=== PATIENT | male | born 1970 | race Caucasian/White ===

== ENCOUNTER 2019-08-25 21:52 | Inpatient (IN) | payer OTHER ==
[2019-08-25 22:59] VITALS: BMI 29.8
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
[2019-08-25] MEDS ORDERED: MAGNESIUM CITRATE 300 ML BOTTLE PO PRN (23:52)
[2019-08-25] MEDS ORDERED: hydrOXYzine PAMOATE 25 MG CAPSULE (FP) PO PRN (23:52)
[2019-08-25] MEDS ORDERED: METHOCARBAMOL 500 MG TABLET PO PRN (23:52)
[2019-08-25] MEDS ORDERED: ACETAMINOPHEN 325 MG TABLET (FP) PO PRN (23:52)
[2019-08-25] MEDS ORDERED: MAGNESIUM HYDROX 2400MG/30ML ORAL SUSPENSION 30 ML CUP PO PRN (23:52)
[2019-08-25] MEDS ORDERED: MAG HYDROX/AL HYDROX/SIMETH 30 ML UNIT-DOSE CUP PO PRN (23:52)
[2019-08-25] MEDS ORDERED: MENTHOL/PHENOL 1 EACH UD MM PRN (23:52)
[2019-08-25] MEDS ORDERED: IBUPROFEN 400 MG TABLET (FP) PO PRN (23:52)
[2019-08-25] MEDS ORDERED: BISMUTH SUBSALICYLATE 524 MG/30 ML UD PO PRN (23:52)
[2019-08-26] MEDS ORDERED: chlordiazePOXIDE HCL 25 MG CAPSULE PO PRN (00:17)
[2019-08-26] MEDS: chlordiazePOXIDE HCL 25 MG CAPSULE PO SCH ×4 (05:58→22:08)
--- NOTE | 2019-08-26 09:34 | PN ---
[facility] CIWA - CIWA Score Nausea/Vomitin-Mild Nausea/No Vomiting Muscle Tremors: 3 Anxiety: 2 Agitation: 1-Slight > Activity Paroxysmal Sweats: 2 Orientation: 2-Disoriented Date<2 days (date of week day of month) Tacttile Disturbances: 0-None Auditory Disturbances: 0-None Visual Disturbances: 1-Very Mild Sensitivity Headache: 2-Mild CIWA-Ar Total Score: 14 [facility] Progress Note (SOAP) Subjective: 49 years old male admitted on 08/25/19 for alcohol withdrawal sx management treating with librium detox regimen feeling tired resting in bed limited conversation with staff prefers to stay in bed today Objective: 08/26/19 09:33 Vital Signs Temperature 97.3 F L 08/26/19 09:07 Pulse Rate 86 08/26/19 09:07 Respiratory Rate 16 08/26/19 09:07 Blood Pressure 127/86 08/26/19 09:07 O2 Sat by Pulse Oximetry (%) 08/26/19 09:33 lab pending Assessment: 08/26/19 09:33 alcohol withdrawal Plan: librium regimen
[2019-08-26] MEDS: PRENATAL VITAMINS W/ FOLIC ACID TABLET (FP) PO SCH (10:40)
[2019-08-26 10:45] LABS: HEMATOCRIT 41.6 % (35.4-49); HEMOGLOBIN 13.9 GM/dL (11.7-16.9); MCH 32.1 pg (25.7-33.7); MCHC 33.3 g/dl (32.0-35.9); MEAN CELL VOLUME 96.3 fl (80-96); MEAN PLT VOLUME 9.8 fl (7.5-11.1); PLATELET COUNT 236 K/MM3 (134-434); RBC 4.32 M/mm3 (4.00-5.60); RDW 13.7 % (11.9-15.9); WHITE BLOOD COUNT 8.5 K/mm3 (4.0-10.0)
[2019-08-26 10:47] LABS: ALBUMIN 4.1 g/dl (3.4-5.0); BILIRUBIN,TOTAL 1.1 mg/dL (0.2-1); BLOOD UREA NITROGEN 18.7 mg/dL (7-18); CALCIUM 9.2 mg/dL (8.5-10.1); POTASSIUM 3.9 mmol/L (3.5-5.1); TOT PROT 7.4 g/dl (6.4-8.2)
[2019-08-26] MEDS: MINERAL OIL/PETROLAT/WATER TOPICAL CREAM 113 GM JAR TP SCH ×2 (15:52→23:22)
[2019-08-26] MEDS: THIAMINE HCL 100 MG TABLET (FP) PO SCH (22:06)
[2019-08-26] MEDS: MELATONIN 5 MG TABLETS PO PRN (22:06)
[2019-08-27] MEDS: chlordiazePOXIDE HCL 25 MG CAPSULE PO SCH ×4 (05:41→22:11)
[2019-08-27] MEDS: PRENATAL VITAMINS W/ FOLIC ACID TABLET (FP) PO SCH (10:09)
[2019-08-27] MEDS: MINERAL OIL/PETROLAT/WATER TOPICAL CREAM 113 GM JAR TP SCH (10:10)
--- NOTE | 2019-08-27 11:56 | PN ---
[facility] CIWA - CIWA Score Nausea/Vomitin-Mild Nausea/No Vomiting Muscle Tremors: 2 Anxiety: 2 Agitation: 2 Paroxysmal Sweats: 1-Minimal Palms Moist Orientation: 0-Oriented Tacttile Disturbances: 0-None Auditory Disturbances: 0-None Visual Disturbances: 1-Very Mild Sensitivity Headache: 0-None Present CIWA-Ar Total Score: 9 S Progress Note (SOAP) Subjective: 49 years old male admitted on 08/25/19 for alcohol withdrawal sx management treating with librium detox regimen feeling ok today resting in bed encourage to attend behavior and psychosocial therapies while in detox Objective: 08/27/19 11:55 Vital Signs Temperature 96.3 F L 08/27/19 09:12 Pulse Rate 79 08/27/19 09:12 Respiratory Rate 18 08/27/19 09:12 Blood Pressure 126/88 08/27/19 09:12 O2 Sat by Pulse Oximetry (%) Laboratory Last Values WBC 8.5 K/mm3 (4.0-10.0) 08/26/19 07:20 RBC 4.32 M/mm3 (4.00-5.60) 08/26/19 07:20 Hgb 13.9 GM/dL (11.7-16.9) 08/26/19 07:20 Hct 41.6 % (35.4-49) 08/26/19 07:20 MCV 96.3 fl (80-96) H 08/26/19 07:20 MCH 32.1 pg (25.7-33.7) 08/26/19 07:20 MCHC 33.3 g/dl (32.0-35.9) 08/26/19 07:20 RDW 13.7 % (11.9-15.9) 08/26/19 07:20 Plt Count 236 K/MM3 (134-434) 08/26/19 07:20 MPV 9.8 fl (7.5-11.1) 08/26/19 07:20 Sodium 141 mmol/L (136-145) 08/26/19 07:20 Potassium 3.9 mmol/L (3.5-5.1) 08/26/19 07:20 Chloride 105 mmol/L (98-107) 08/26/19 07:20 Carbon Dioxide 30 mmol/L (21-32) 08/26/19 07:20 Anion Gap 7 MMOL/L (8-16) L 08/26/19 07:20 BUN 18.7 mg/dL (7-18) H 08/26/19 07:20 Creatinine 1.0 mg/dL (0.55-1.3) 08/26/19 07:20 Est GFR (CKD-EPI)AfAm 101.98 08/26/19 07:20 Est GFR (CKD-EPI)NonAf 87.99 08/26/19 07:20 Random Glucose 81 mg/dL (74-106) 08/26/19 07:20 Calcium 9.2 mg/dL (8.5-10.1) 08/26/19 07:20 Total Bilirubin 1.1 mg/dL (0.2-1) H 08/26/19 07:20 AST 23 U/L (15-37) 08/26/19 07:20 ALT 27 U/L (13-61) 08/26/19 07:20 Alkaline Phosphatase 53 U/L (45-117) 08/26/19 07:20 Total Protein 7.4 g/dl (6.4-8.2) 08/26/19 07:20 Albumin 4.1 g/dl (3.4-5.0) 08/26/19 07:20 RPR Titer Nonreactive (NONREACTIVE) 08/26/19 07:20 lab noted Assessment: 08/27/19 11:55 alcohol withdrawal Plan: librium regimen
[2019-08-27] MEDS: HYDROCORTISONE 1% TOPICAL OINT 30 GM TUBE TP SCH ×3 (15:02→22:10)
[2019-08-27] MEDS: MELATONIN 5 MG TABLETS PO PRN (22:11)
[2019-08-27] MEDS: THIAMINE HCL 100 MG TABLET (FP) PO SCH (22:11)
[2019-08-28] MEDS ORDERED: chlordiazePOXIDE HCL 10 MG CAPSULE PO PRN
[2019-08-28] MEDS: chlordiazePOXIDE HCL 10 MG CAPSULE PO SCH ×4 (05:36→22:14)
[2019-08-28] MEDS: PRENATAL VITAMINS W/ FOLIC ACID TABLET (FP) PO SCH (10:21)
[2019-08-28] MEDS: HYDROCORTISONE 1% TOPICAL OINT 30 GM TUBE TP SCH ×4 (10:21→22:14)
[2019-08-28] MEDS: ACETAMINOPHEN 325 MG TABLET (FP) PO PRN (10:22)
--- NOTE | 2019-08-28 10:22 | PN ---
[facility] CIWA - CIWA Score Nausea/Vomitin-No Nausea/No Vomiting Muscle Tremors: 2 Anxiety: 1-Mildly Anxious Agitation: 1-Slight > Activity Paroxysmal Sweats: 2 Orientation: 0-Oriented Tacttile Disturbances: 0-None Auditory Disturbances: 0-None Visual Disturbances: 1-Very Mild Sensitivity Headache: 0-None Present CIWA-Ar Total Score: 7 S Progress Note (SOAP) Subjective: 49 years old male admitted on 08/25/19 for alcohol withdrawal sx management treating with librium detox regimen reports feeling depressed denies suicidal ideation denies homocidal ideation no self destructive behavior requests to be seen by a psychiatrist denies hallucinations but eyes are sensitive to light ate breakfast tolerated food and fluid well Objective: 08/28/19 10:20 Vital Signs Temperature 97.4 F L 08/28/19 09:19 Pulse Rate 95 H 08/28/19 09:19 Respiratory Rate 18 08/28/19 09:19 Blood Pressure 126/80 08/28/19 09:19 O2 Sat by Pulse Oximetry (%) Laboratory Last Values WBC 8.5 K/mm3 (4.0-10.0) 08/26/19 07:20 RBC 4.32 M/mm3 (4.00-5.60) 08/26/19 07:20 Hgb 13.9 GM/dL (11.7-16.9) 08/26/19 07:20 Hct 41.6 % (35.4-49) 08/26/19 07:20 MCV 96.3 fl (80-96) H 08/26/19 07:20 MCH 32.1 pg (25.7-33.7) 08/26/19 07:20 MCHC 33.3 g/dl (32.0-35.9) 08/26/19 07:20 RDW 13.7 % (11.9-15.9) 08/26/19 07:20 Plt Count 236 K/MM3 (134-434) 08/26/19 07:20 MPV 9.8 fl (7.5-11.1) 08/26/19 07:20 Sodium 141 mmol/L (136-145) 08/26/19 07:20 Potassium 3.9 mmol/L (3.5-5.1) 08/26/19 07:20 Chloride 105 mmol/L (98-107) 08/26/19 07:20 Carbon Dioxide 30 mmol/L (21-32) 08/26/19 07:20 Anion Gap 7 MMOL/L (8-16) L 08/26/19 07:20 BUN 18.7 mg/dL (7-18) H 08/26/19 07:20 Creatinine 1.0 mg/dL (0.55-1.3) 08/26/19 07:20 Est GFR (CKD-EPI)AfAm 101.98 08/26/19 07:20 Est GFR (CKD-EPI)NonAf 87.99 08/26/19 07:20 Random Glucose 81 mg/dL (74-106) 08/26/19 07:20 Calcium 9.2 mg/dL (8.5-10.1) 08/26/19 07:20 Total Bilirubin 1.1 mg/dL (0.2-1) H 08/26/19 07:20 AST 23 U/L (15-37) 08/26/19 07:20 ALT 27 U/L (13-61) 08/26/19 07:20 Alkaline Phosphatase 53 U/L (45-117) 08/26/19 07:20 Total Protein 7.4 g/dl (6.4-8.2) 08/26/19 07:20 Albumin 4.1 g/dl (3.4-5.0) 08/26/19 07:20 RPR Titer Nonreactive (NONREACTIVE) 08/26/19 07:20 lab noted Assessment: 08/28/19 10:21 alcohol withdrawal Plan: librium regiment
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
[2019-08-28] MEDS: THIAMINE HCL 100 MG TABLET (FP) PO SCH (22:14)
[2019-08-28] MEDS: MELATONIN 5 MG TABLETS PO PRN (22:14)
[2019-08-29] MEDS: chlordiazePOXIDE HCL 10 MG CAPSULE PO SCH ×2 (05:20→17:38)
[2019-08-29] MEDS: PRENATAL VITAMINS W/ FOLIC ACID TABLET (FP) PO SCH (10:01)
[2019-08-29] MEDS: ACETAMINOPHEN 325 MG TABLET (FP) PO PRN (10:01)
[2019-08-29] MEDS: HYDROCORTISONE 1% TOPICAL OINT 30 GM TUBE TP SCH ×4 (10:01→22:21)
--- NOTE | 2019-08-29 10:25 | PN ---
[facility] CIWA - CIWA Score Nausea/Vomitin-No Nausea/No Vomiting Muscle Tremors: 1-None Visible, but [place] Anxiety: 3 Agitation: 0-Normal Activity Paroxysmal Sweats: 1-Minimal Palms Moist Orientation: 0-Oriented Tacttile Disturbances: 0-None Auditory Disturbances: 0-None Visual Disturbances: 0-None Headache: 0-None Present CIWA-Ar Total Score: 5 S Progress Note (SOAP) Subjective: 49 years old male admitted on 08/25/19 for alcohol withdrawal sx management treating with librium detox regimen feeling better today less tremor mild anxiousness discussed relapse prevention with staff Objective: 08/29/19 10:26 Vital Signs Temperature 97.5 F L 08/29/19 09:10 Pulse Rate 81 08/29/19 09:10 Respiratory Rate 18 08/29/19 09:10 Blood Pressure 117/81 08/29/19 09:10 O2 Sat by Pulse Oximetry (%) Laboratory Last Values WBC 8.5 K/mm3 (4.0-10.0) 08/26/19 07:20 RBC 4.32 M/mm3 (4.00-5.60) 08/26/19 07:20 Hgb 13.9 GM/dL (11.7-16.9) 08/26/19 07:20 Hct 41.6 % (35.4-49) 08/26/19 07:20 MCV 96.3 fl (80-96) H 08/26/19 07:20 MCH 32.1 pg (25.7-33.7) 08/26/19 07:20 MCHC 33.3 g/dl (32.0-35.9) 08/26/19 07:20 RDW 13.7 % (11.9-15.9) 08/26/19 07:20 Plt Count 236 K/MM3 (134-434) 08/26/19 07:20 MPV 9.8 fl (7.5-11.1) 08/26/19 07:20 Sodium 141 mmol/L (136-145) 08/26/19 07:20 Potassium 3.9 mmol/L (3.5-5.1) 08/26/19 07:20 Chloride 105 mmol/L (98-107) 08/26/19 07:20 Carbon Dioxide 30 mmol/L (21-32) 08/26/19 07:20 Anion Gap 7 MMOL/L (8-16) L 08/26/19 07:20 BUN 18.7 mg/dL (7-18) H 08/26/19 07:20 Creatinine 1.0 mg/dL (0.55-1.3) 08/26/19 07:20 Est GFR (CKD-EPI)AfAm 101.98 08/26/19 07:20 Est GFR (CKD-EPI)NonAf 87.99 08/26/19 07:20 Random Glucose 81 mg/dL (74-106) 08/26/19 07:20 Calcium 9.2 mg/dL (8.5-10.1) 08/26/19 07:20 Total Bilirubin 1.1 mg/dL (0.2-1) H 08/26/19 07:20 AST 23 U/L (15-37) 08/26/19 07:20 ALT 27 U/L (13-61) 08/26/19 07:20 Alkaline Phosphatase 53 U/L (45-117) 08/26/19 07:20 Total Protein 7.4 g/dl (6.4-8.2) 08/26/19 07:20 Albumin 4.1 g/dl (3.4-5.0) 08/26/19 07:20 RPR Titer Nonreactive (NONREACTIVE) 08/26/19 07:20 lab noted Assessment: 08/29/19 10:26 alcohol withdrawal Plan: librium regimen
[2019-08-29] MEDS: MELATONIN 5 MG TABLETS PO PRN (22:21)
[2019-08-29] MEDS: THIAMINE HCL 100 MG TABLET (FP) PO SCH (22:21)
[2019-08-30] MEDS ORDERED: chlordiazePOXIDE HCL 10 MG CAPSULE PO ONE (05:00)
[2019-08-30 09:15] VITALS: BP 131/90; PULSE 96; TEMP 97.5
[2019-08-30] MEDS: HYDROCORTISONE 1% TOPICAL OINT 30 GM TUBE TP SCH ×2 (09:35→13:24)
[2019-08-30] MEDS: ACETAMINOPHEN 325 MG TABLET (FP) PO PRN (09:35)
[2019-08-30] MEDS: PRENATAL VITAMINS W/ FOLIC ACID TABLET (FP) PO SCH (09:35)
--- NOTE | 2019-08-30 10:31 | PN ---
[facility] CIWA - CIWA Score Nausea/Vomitin-No Nausea/No Vomiting Muscle Tremors: 1-None Visible, but [place] Anxiety: 1-Mildly Anxious Agitation: 0-Normal Activity Paroxysmal Sweats: 1-Minimal Palms Moist Orientation: 0-Oriented Tacttile Disturbances: 0-None Auditory Disturbances: 0-None Visual Disturbances: 0-None Headache: 0-None Present CIWA-Ar Total Score: 3 [facility] Progress Note (SOAP) Subjective: 49 years old male admitted on 08/25/19 for alcohol withdrawal sx management treating with librium detox regiment reports seen by psychiatrist feeling better received melantonin yesterday and librium today requests to be seen by a psychiatrist today denies suicidal ideation no self harm behavior noted at this time psychiatrist referral encourage seeking psychotherapy in [facility] Objective: 08/30/19 10:35 Vital Signs Temperature 97.5 F L 08/30/19 09:15 Pulse Rate 96 H 08/30/19 09:15 Respiratory Rate 18 08/30/19 09:15 Blood Pressure 131/90 08/30/19 09:15 O2 Sat by Pulse Oximetry (%) Laboratory Last Values WBC 8.5 K/mm3 (4.0-10.0) 08/26/19 07:20 RBC 4.32 M/mm3 (4.00-5.60) 08/26/19 07:20 Hgb 13.9 GM/dL (11.7-16.9) 08/26/19 07:20 Hct 41.6 % (35.4-49) 08/26/19 07:20 MCV 96.3 fl (80-96) H 08/26/19 07:20 MCH 32.1 pg (25.7-33.7) 08/26/19 07:20 MCHC 33.3 g/dl (32.0-35.9) 08/26/19 07:20 RDW 13.7 % (11.9-15.9) 08/26/19 07:20 Plt Count 236 K/MM3 (134-434) 08/26/19 07:20 MPV 9.8 fl (7.5-11.1) 08/26/19 07:20 Sodium 141 mmol/L (136-145) 08/26/19 07:20 Potassium 3.9 mmol/L (3.5-5.1) 08/26/19 07:20 Chloride 105 mmol/L (98-107) 08/26/19 07:20 Carbon Dioxide 30 mmol/L (21-32) 08/26/19 07:20 Anion Gap 7 MMOL/L (8-16) L 08/26/19 07:20 BUN 18.7 mg/dL (7-18) H 08/26/19 07:20 Creatinine 1.0 mg/dL (0.55-1.3) 08/26/19 07:20 Est GFR (CKD-EPI)AfAm 101.98 08/26/19 07:20 Est GFR (CKD-EPI)NonAf 87.99 08/26/19 07:20 Random Glucose 81 mg/dL (74-106) 08/26/19 07:20 Calcium 9.2 mg/dL (8.5-10.1) 08/26/19 07:20 Total Bilirubin 1.1 mg/dL (0.2-1) H 08/26/19 07:20 AST 23 U/L (15-37) 08/26/19 07:20 ALT 27 U/L (13-61) 08/26/19 07:20 Alkaline Phosphatase 53 U/L (45-117) 08/26/19 07:20 Total Protein 7.4 g/dl (6.4-8.2) 08/26/19 07:20 Albumin 4.1 g/dl (3.4-5.0) 08/26/19 07:20 RPR Titer Nonreactive (NONREACTIVE) 08/26/19 07:20 lab noted emotional support given patient appears anxious about relapse during recovery that "can not live like that" 08/30/19 10:38 encourage the patient to attend behavior and psychosocial therapies groups and meetings while in detox Assessment: 08/30/19 10:39 alcohol withdrawal Plan: librium regimen multidisciplinary approaches to patient centered care that it is necessary for patient to be seen by a psychiatrist today
--- NOTE | 2019-08-30 11:22 | DS ---
[facility] Detox Discharge Summary Admission Date: 08/25/19 Discharge Date: 08/30/19 - History Present History: Alcohol Dependence Additional Comments: an opportunity for patient to be seen by a psychiatrist in [place] patient agrees to be admitted to [facility] and be seen by psychiatrist for sad mood and learn relapse coping patient is planed to complete short term in patient rehab as first step to recovery 49 years old male admitted on 08/25/19 for alcohol withdrawal sx management treated with librium detox regiment patient has completed the librium regimen and tolerated well alert oriented x 3 respiratory clear lung bilaterally on auscultation extremities full range of motion skin warm and dry - Physical Exam Results Vital Signs: Vital Signs Temperature 97.5 F L 08/30/19 09:15 Pulse Rate 96 H 08/30/19 09:15 Respiratory Rate 18 08/30/19 09:15 Blood Pressure 131/90 08/30/19 09:15 O2 Sat by Pulse Oximetry (%) Pertinent Admission Physical Exam Findings: alcohol withdrawal Laboratory Last Values WBC 8.5 K/mm3 (4.0-10.0) 08/26/19 07:20 RBC 4.32 M/mm3 (4.00-5.60) 08/26/19 07:20 Hgb 13.9 GM/dL (11.7-16.9) 08/26/19 07:20 Hct 41.6 % (35.4-49) 08/26/19 07:20 MCV 96.3 fl (80-96) H 08/26/19 07:20 MCH 32.1 pg (25.7-33.7) 08/26/19 07:20 MCHC 33.3 g/dl (32.0-35.9) 08/26/19 07:20 RDW 13.7 % (11.9-15.9) 08/26/19 07:20 Plt Count 236 K/MM3 (134-434) 08/26/19 07:20 MPV 9.8 fl (7.5-11.1) 08/26/19 07:20 Sodium 141 mmol/L (136-145) 08/26/19 07:20 Potassium 3.9 mmol/L (3.5-5.1) 08/26/19 07:20 Chloride 105 mmol/L (98-107) 08/26/19 07:20 Carbon Dioxide 30 mmol/L (21-32) 08/26/19 07:20 Anion Gap 7 MMOL/L (8-16) L 08/26/19 07:20 BUN 18.7 mg/dL (7-18) H 08/26/19 07:20 Creatinine 1.0 mg/dL (0.55-1.3) 08/26/19 07:20 Est GFR (CKD-EPI)AfAm 101.98 08/26/19 07:20 Est GFR (CKD-EPI)NonAf 87.99 08/26/19 07:20 Random Glucose 81 mg/dL (74-106) 08/26/19 07:20 Calcium 9.2 mg/dL (8.5-10.1) 08/26/19 07:20 Total Bilirubin 1.1 mg/dL (0.2-1) H 08/26/19 07:20 AST 23 U/L (15-37) 08/26/19 07:20 ALT 27 U/L (13-61) 08/26/19 07:20 Alkaline Phosphatase 53 U/L (45-117) 08/26/19 07:20 Total Protein 7.4 g/dl (6.4-8.2) 08/26/19 07:20 Albumin 4.1 g/dl (3.4-5.0) 08/26/19 07:20 RPR Titer Nonreactive (NONREACTIVE) 08/26/19 07:20 lab noted - Treatment Hospital Course: Detox Protocol Followed, Detoxed Safely, Responded well, Discharged Condition Good, Rehab Referral Accepted Patient has Accepted a Rehab Referral to: [facility] - Medication Discharge Medications: Ambulatory Orders NK [No Known Home Medication] 08/30/19 - Diagnosis (1) Alcohol dependence with withdrawal, uncomplicated Status: Acute (2) Substance induced mood disorder Status: Suspected (3) Depression Status: Suspected Qualifiers: Depression Type: dysthymia Qualified Code(s): F34.1 - Dysthymic disorder - AMA Did Patient Leave Against Medical Advice: No CIWA Score - CIWA Score Nausea/Vomitin-No Nausea/No Vomiting Muscle Tremors: 1-None Visible, but [place] Anxiety: 0-No Anxiety, at Ease Agitation: 0-Normal Activity Paroxysmal Sweats: No Perspiration Orientation: 0-Oriented Tacttile Disturbances: 0-None Auditory Disturbances: 0-None Visual Disturbances: 0-None Headache: 0-None Present CIWA-Ar Total Score: 1
--- NOTE | 2019-08-30 15:14 | EKG ---
Test Reason : Blood Pressure : / mmHG Vent. Rate : 076 BPM Atrial Rate : 076 BPM P-R Int : 182 ms QRS Dur : 094 ms QT Int : 368 ms P-R-T Axes : 057 018 030 degrees QTc Int : 414 ms NORMAL SINUS RHYTHM POSSIBLE LEFT ATRIAL ENLARGEMENT EARLY REPOLARIZATION BORDERLINE ECG NO PREVIOUS ECGS AVAILABLE Confirmed by CAROLYN HERNANDEZ, IVY ([id number]) on 08/30/2019 3:14:38 PM Referred By: Confirmed By:IVY LEON MD
== END 2019-08-30 13:23 | disposition other institution (70) | DRG 774 ==
LOC: YASAS 21:52 → UNDOADMIN 23:30 → Y3N 23:30
PROVIDERS: ADMIT Allergy & Immunology; ATTEND Allergy & Immunology
PROC: HZ2ZZZZ Detoxification Services for Substance Abuse Treatment (ICD-10-PCS; principal; 2019-08-25)
DX: F10.230 Alcohol dependence with withdrawal, uncomplicated (principal); F14.20 Cocaine dependence, uncomplicated; F19.282 Other psychoactive substance dependence with psychoactive substance-induced sleep disorder; F19.24 Other psychoactive substance dependence with psychoactive substance-induced mood disorder; F34.1 Dysthymic disorder
CPT/HCPCS: 36415; 80053; 85027; 86593; 93005; 93010

== ENCOUNTER 2019-08-30 13:26 | Inpatient (IN) | payer OTHER ==
[2019-08-30] MEDS ORDERED: guaiFENesin 200 MG/10 ML 10 ML UNIT-DOSE CUPS PO PRN (13:36)
[2019-08-30] MEDS ORDERED: MENTHOL/PHENOL 1 EACH UD MM PRN (13:36)
[2019-08-30] MEDS ORDERED: MAG HYDROX/AL HYDROX/SIMETH 30 ML UNIT-DOSE CUP PO PRN (13:36)
[2019-08-30] MEDS ORDERED: ACETAMINOPHEN 325 MG TABLET (FP) PO PRN (13:36)
[2019-08-30] MEDS ORDERED: MAGNESIUM HYDROX 2400MG/30ML ORAL SUSPENSION 30 ML CUP PO PRN (13:36)
[2019-08-30] MEDS ORDERED: LOPERAMIDE HCL 2 MG CAPSULE PO PRN (13:36)
[2019-08-30] MEDS ORDERED: IBUPROFEN 400 MG TABLET (FP) PO PRN (13:36)
[2019-08-30] MEDS ORDERED: MAGNESIUM CITRATE 300 ML BOTTLE PO PRN (13:36)
[2019-08-30] MEDS ORDERED: P-EPHED 60MG/TRIPROLIDI 2.5MG TABLET PO PRN (13:36)
--- NOTE | 2019-08-30 13:36 | HP ---
AB HERNANDEZ Rehab Assess/Revision - Admission History Admitted to Rehab from: [facility] [place] Date of Admission to Rehab: 08/30/19 - Findings Detox History & Physical reviewed: Yes Concur with findings: Yes Comments/Additional Findings: transferred from detox to rehab admission as per protocol Inpatient Rehab Admission - Rehab Decision to Admit Inpatient rehab admission?: Yes - Initial Determination Are CD services needed?: Yes Free of communicable disease: Yes Not in need of hospitalization: Yes - Rehab Admission Criteria Previous failed treatment: Yes Poor recovery environment: Yes Comorbidities: Yes Lacks judgement: Yes Patient is meeting Inpatient Rehab admission criteria:: Yes
--- NOTE | 2019-08-30 15:58 | CONSULT ---
[facility] Psychiatric Consult - Data Date of interview: 08/30/19 Admission source: [facility] Identifying data: Patient is a 49 year old male, father of three, , unemployed, homeless, and is supported by food stamps. This is patient's first admission to rehab at [facility]. Patient admitted to for alcohol and cocaine dependence. Substance Abuse History: Smoking Cessation. Smoking history: Never smoked. Have you smoked in the past 12 months: No. Hx Chewing Tobacco Use: No. Initiated information on smoking cessation: No. - Substance & Tx. History. Hx Alcohol Use: Yes. Hx Substance Use: No. Substance Use Type: Alcohol. Hx Substance Use Treatment: Yes ([facility]). - Substances abused. Alcohol. Substance route: Oral. Frequency: Daily. Amount used: liquor- 1 pint, 2 six pack. Age of first use: 47. Date of last use: 08/25/19. Cocaine. Substance route: Inhalation. Frequency: Daily. Amount used: 3 bags. Age of first use: 30. Date of last use: 08/22/19 Medical History: unremarkable. Psychiatric History: Patient denies history of psychiatric hospitalization and suicide attempt. Mr. Garcia first saw a psychiatrist in [facility] in the [place] in 2017 after he was having difficulty with the of his whom committed suicide by hanging in 2014. Mr Garcia reports seeing the psychiatrist for 2-3 months before discontining medication. States that he was prescribed an antidepressant medication but is unable to recall the name of the medication. He reports difficulty with compliance with treatment because during that time [facility] removed the children from his household due to his drug addiction. Patient is now requesting to restart treatment with an antidepressant as he reports feeling sad, depresssed, and at times feels hopeless. Patient denies thoughts or urges to hurt self others. Physical/Sexual Abuse/Trauma History: denies. Mental Status Exam - Mental Status Exam Alert and Oriented to: Time, Place, Person Cognitive Function: Good Patient Appearance: Well Groomed Mood: Sad Affect: Appropriate Patient Behavior: Appropriate, Cooperative Speech Pattern: Appropriate Voice Loudness: Normal Thought Process: Intact, Goal Oriented Thought Disorder: Not Present Hallucinations: Denies Suicidal Ideation: Denies Homicidal Ideation: Denies Insight/Judgement: Poor Sleep: Poorly Appetite: Fair Muscle strength/Tone: Normal Gait/Station: Normal Psychiatric Findings - Problem List ([place] 1, 2,3) (1) Alcohol use disorder Current Visit: Yes Status: Acute (2) Cocaine dependence Current Visit: Yes Status: Acute (3) Substance induced mood disorder Current Visit: Yes Status: Suspected (4) Depressive disorder Current Visit: Yes Status: Acute - Initial Treatment Plan Initial Treatment Plan: Psychoeducation provided. Detoxification in progress. Will order Prozac 10mg daily. Benefits and side effects discussed.
[2019-08-30] MEDS: HYDROCORTISONE 1% TOPICAL OINT 30 GM TUBE TP SCH ×3 (16:14→21:42)
[2019-08-30] MEDS: MELATONIN 5 MG TABLETS PO PRN (21:42)
[2019-08-30] MEDS: THIAMINE HCL 100 MG TABLET (FP) PO SCH (21:42)
--- NOTE | 2019-08-31 10:30 | PN ---
[facility] Progress Note Note: Pt is a 49 y/o male with a hx of YARELIS-alcohol,cocaine admitted to rehab yesterday 08/30/19 from [facility] after completion of tx. PMHx:Chronic skin rash(x 6 months and treated at [facility]), right LE. Surgical Hx: Denies. Pt reports psych Hx of Depression and has been consulted by psych and started on Prozac 10 mg po daily. Pt reports he has no current PCP and goes to any Hospital near him for medical care, example "[facility]". Vital Signs - 24 hr 08/30/19 08/31/19 08/31/19 14:30 00:30 03:30 Temperature 97.8 F Pulse Rate 83 Respiratory 20 20 18 Rate Blood Pressure 127/82 08/31/19 07:08 Temperature 97.9 F Pulse Rate 80 Respiratory 18 Rate Blood Pressure 132/90 alert o x 3,denies s/h/i nad oob ambulating with steady gait. extremities/skin:right lower extremity with extensive skin rash(calf to heel areas)-dry,scaly with dark skin discoloration. A/P new rehab pt skin Eczema Maintain safety increase po fluids Currently on Hytone ointment 1% topical QID monitor treatment for effectiveness.
[2019-08-31] MEDS: PRENATAL VITAMINS W/ FOLIC ACID TABLET (FP) PO SCH (10:53)
[2019-08-31] MEDS: HYDROCORTISONE 1% TOPICAL OINT 30 GM TUBE TP SCH ×4 (10:53→21:33)
[2019-08-31] MEDS: FLUoxetine HCL 10 MG TABLET PO SCH (11:38)
[2019-08-31] MEDS ORDERED: FLU VACCINE QUAD 60 MCG/0.5 ML (MDV 19-20) IM ONE (13:50)
[2019-08-31] MEDS: THIAMINE HCL 100 MG TABLET (FP) PO SCH (21:31)
[2019-08-31] MEDS: MELATONIN 5 MG TABLETS PO PRN (21:32)
[2019-09-01] MEDS: PRENATAL VITAMINS W/ FOLIC ACID TABLET (FP) PO SCH (10:06)
[2019-09-01] MEDS: FLUoxetine HCL 10 MG TABLET PO SCH (10:06)
[2019-09-01] MEDS: HYDROCORTISONE 1% TOPICAL OINT 30 GM TUBE TP SCH ×4 (10:07→21:57)
[2019-09-01] MEDS: MELATONIN 5 MG TABLETS PO PRN (21:57)
[2019-09-01] MEDS: THIAMINE HCL 100 MG TABLET (FP) PO SCH (21:57)
[2019-09-02] MEDS: FLUoxetine HCL 10 MG TABLET PO SCH (10:44)
[2019-09-02] MEDS: PRENATAL VITAMINS W/ FOLIC ACID TABLET (FP) PO SCH (10:44)
[2019-09-02] MEDS: HYDROCORTISONE 1% TOPICAL OINT 30 GM TUBE TP SCH ×4 (10:44→21:49)
[2019-09-02] MEDS: MELATONIN 5 MG TABLETS PO PRN (21:49)
[2019-09-02] MEDS: THIAMINE HCL 100 MG TABLET (FP) PO SCH (21:49)
[2019-09-03] MEDS: FLUoxetine HCL 10 MG TABLET PO SCH (11:15)
[2019-09-03] MEDS: HYDROCORTISONE 1% TOPICAL OINT 30 GM TUBE TP SCH ×4 (11:15→21:46)
[2019-09-03] MEDS: PRENATAL VITAMINS W/ FOLIC ACID TABLET (FP) PO SCH (11:15)
[2019-09-03] MEDS: THIAMINE HCL 100 MG TABLET (FP) PO SCH (21:45)
[2019-09-03] MEDS: MELATONIN 5 MG TABLETS PO PRN (21:45)
[2019-09-04] MEDS: HYDROCORTISONE 1% TOPICAL OINT 30 GM TUBE TP SCH ×4 (10:23→21:40)
[2019-09-04] MEDS: PRENATAL VITAMINS W/ FOLIC ACID TABLET (FP) PO SCH (10:23)
[2019-09-04] MEDS: FLUoxetine HCL 10 MG CAPSULE PO SCH (10:23)
[2019-09-04] MEDS: MELATONIN 5 MG TABLETS PO PRN (21:40)
[2019-09-04] MEDS: THIAMINE HCL 100 MG TABLET (FP) PO SCH (21:40)
[2019-09-05] MEDS: FLUoxetine HCL 10 MG CAPSULE PO SCH (10:59)
[2019-09-05] MEDS: HYDROCORTISONE 1% TOPICAL OINT 30 GM TUBE TP SCH ×4 (10:59→21:47)
[2019-09-05] MEDS: PRENATAL VITAMINS W/ FOLIC ACID TABLET (FP) PO SCH (10:59)
[2019-09-05] MEDS: THIAMINE HCL 100 MG TABLET (FP) PO SCH (21:46)
[2019-09-05] MEDS: MELATONIN 5 MG TABLETS PO PRN (21:46)
[2019-09-06] MEDS: FLUoxetine HCL 10 MG CAPSULE PO SCH (10:59)
[2019-09-06] MEDS: PRENATAL VITAMINS W/ FOLIC ACID TABLET (FP) PO SCH (10:59)
[2019-09-06] MEDS: HYDROCORTISONE 1% TOPICAL OINT 30 GM TUBE TP SCH ×4 (11:00→22:41)
[2019-09-06] MEDS: THIAMINE HCL 100 MG TABLET (FP) PO SCH (22:08)
[2019-09-06] MEDS: MELATONIN 5 MG TABLETS PO PRN (22:09)
[2019-09-07] MEDS: PRENATAL VITAMINS W/ FOLIC ACID TABLET (FP) PO SCH (10:50)
[2019-09-07] MEDS: HYDROCORTISONE 1% TOPICAL OINT 30 GM TUBE TP SCH ×4 (10:50→21:42)
[2019-09-07] MEDS: FLUoxetine HCL 10 MG CAPSULE PO SCH (10:50)
[2019-09-07] MEDS: MELATONIN 5 MG TABLETS PO PRN (21:42)
[2019-09-07] MEDS: THIAMINE HCL 100 MG TABLET (FP) PO SCH (21:42)
[2019-09-08] MEDS: FLUoxetine HCL 10 MG CAPSULE PO SCH (09:23)
[2019-09-08] MEDS: PRENATAL VITAMINS W/ FOLIC ACID TABLET (FP) PO SCH (09:23)
[2019-09-08] MEDS: HYDROCORTISONE 1% TOPICAL OINT 30 GM TUBE TP SCH ×4 (09:24→21:43)
[2019-09-08] MEDS: THIAMINE HCL 100 MG TABLET (FP) PO SCH (21:43)
[2019-09-08] MEDS: MELATONIN 5 MG TABLETS PO PRN (21:43)
[2019-09-09] MEDS: PRENATAL VITAMINS W/ FOLIC ACID TABLET (FP) PO SCH (10:43)
[2019-09-09] MEDS: FLUoxetine HCL 10 MG CAPSULE PO SCH (10:43)
[2019-09-09] MEDS: HYDROCORTISONE 1% TOPICAL OINT 30 GM TUBE TP SCH ×4 (10:44→21:54)
[2019-09-09] MEDS: THIAMINE HCL 100 MG TABLET (FP) PO SCH (21:40)
[2019-09-09] MEDS: MELATONIN 5 MG TABLETS PO PRN (21:40)
[2019-09-10] MEDS: PRENATAL VITAMINS W/ FOLIC ACID TABLET (FP) PO SCH (11:03)
[2019-09-10] MEDS: FLUoxetine HCL 10 MG CAPSULE PO SCH (11:04)
[2019-09-10] MEDS: HYDROCORTISONE 1% TOPICAL OINT 30 GM TUBE TP SCH ×4 (11:04→21:52)
[2019-09-10] MEDS: MELATONIN 5 MG TABLETS PO PRN (21:51)
[2019-09-10] MEDS: THIAMINE HCL 100 MG TABLET (FP) PO SCH (21:51)
[2019-09-11] MEDS: HYDROCORTISONE 1% TOPICAL OINT 30 GM TUBE TP SCH ×4 (09:36→21:49)
[2019-09-11] MEDS: FLUoxetine HCL 10 MG CAPSULE PO SCH (09:36)
[2019-09-11] MEDS: PRENATAL VITAMINS W/ FOLIC ACID TABLET (FP) PO SCH (09:36)
[2019-09-11] MEDS: THIAMINE HCL 100 MG TABLET (FP) PO SCH (21:48)
[2019-09-11] MEDS: MELATONIN 5 MG TABLETS PO PRN (21:48)
[2019-09-12] MEDS: FLUoxetine HCL 10 MG CAPSULE PO SCH (09:20)
[2019-09-12] MEDS: PRENATAL VITAMINS W/ FOLIC ACID TABLET (FP) PO SCH (09:20)
[2019-09-12] MEDS: HYDROCORTISONE 1% TOPICAL OINT 30 GM TUBE TP SCH ×4 (09:20→21:19)
[2019-09-12] MEDS: THIAMINE HCL 100 MG TABLET (FP) PO SCH (21:19)
[2019-09-12] MEDS: MELATONIN 5 MG TABLETS PO PRN (21:19)
--- NOTE | 2019-09-13 08:51 | PN ---
Psychiatric Progress Note Vital Signs: Vital Signs Period Temp Pulse Resp BP Sys/Dasilva Pulse Ox Last 24 Hr 97.7 F 75 18-18 124/79 Date of Session: 09/13/19 Chief Complaint:: " Can you increase my depression medication." HPI: Patient admitted to for alcohol and cocaine dependence. Consultation ordered as patient continues to report feeling sad. ROS: Patient is alert +oriented X3. Current Medications: Active Medications Generic Name Dose Route Start Last Admin Trade Name Freq PRN Reason Stop Dose Admin Acetaminophen 650 mg 08/30/19 13:36 Tylenol - PO Q4H PRN FEVER Al Hydroxide/Mg Hydroxide 30 ml 08/30/19 13:36 Mylanta Oral Suspension - PO Q6H PRN DYSPEPSIA Eucalyptus/Menthol/Phenol/Sorbitol 1 each 08/30/19 13:36 Cepastat Lozenge - MM Q4H PRN SORE THROAT Guaifenesin 10 ml 08/30/19 13:36 Robitussin - PO Q6H PRN COUGH Hydrocortisone 1 applic 08/30/19 14:00 09/12/19 21:19 Hytone 1% Ointment - TP Not Given QID GRIFFIN Ibuprofen 400 mg 08/30/19 13:36 09/08/19 09:23 Motrin - PO 400 mg Q6H PRN Administration Pain level 4-6 Loperamide HCl 4 mg 08/30/19 13:36 Imodium - PO Q6H PRN DIARRHEA Magnesium Citrate 300 ml 08/30/19 13:36 Citroma - PO Q48H PRN CONSTIPATION Magnesium Hydroxide 30 ml 08/30/19 13:36 Milk Of Magnesia - PO DAILY PRN CONSTIPATION Melatonin 5 mg 08/30/19 22:00 09/12/19 21:19 Melatonin PO 5 mg HS PRN Administration INSOMNIA Multivit/Folic Acid/Iron 1 tab 08/31/19 10:00 09/12/19 09:20 Vitamins (Sjr) - PO 1 tab DAILY GRIFFIN Administration Pseudoephedrine/Triprolidine 1 combo 08/30/19 13:36 Actifed - PO TID PRN NASAL CONGESTION Thiamine HCl 100 mg 08/30/19 22:00 09/12/19 21:19 Vitamin B1 - PO 100 mg HS GRIFFIN Administration Medication(s) Change(s): Will d/c Prozac 10mg. Will order Prozac 20mg daily. Current Side Effect: No Lab tests ordered: No Lab tests reviewed: Yes Provider note:: Patient seen by radio script writer on 08/30/19. History of depressive disorder secondary to his partner's suicide by hanging and children being taken by CPS. Past treatment with unknown antidepressant. Patient started on Prozac 10mg by radio script writer. No side effects reported. Patient reports a slight improvement in mood but contines to feel sad and depressed Will d/c Prozac 10mg. Will order Prozac 20mg daily. Benefits and side effects discussed. Verbal consent given. Total face to face time:: 25 Mental Status Exam - Mental Status Exam Alert and Oriented to: Time, Place, Person Cognitive Function: Good Patient Appearance: Well Groomed Mood: Sad Affect: Appropriate Patient Behavior: Appropriate, Cooperative Speech Pattern: Clear, Appropriate Voice Loudness: Normal Thought Process: Intact, Goal Oriented Thought Disorder: Not Present Hallucinations: Denies Suicidal Ideation: Denies Homicidal Ideation: Denies Insight/Judgement: Poor Sleep: Fair Appetite: Fair Muscle strength/Tone: Normal Gait/Station: Normal Psychiatric Treatment Plan - Problem List (1) Alcohol use disorder Current Visit: Yes (2) Cocaine dependence Current Visit: Yes (3) Substance induced mood disorder Current Visit: Yes (4) Depressive disorder Current Visit: Yes
[2019-09-13] MEDS: HYDROCORTISONE 1% TOPICAL OINT 30 GM TUBE TP SCH ×4 (10:20→21:44)
[2019-09-13] MEDS: PRENATAL VITAMINS W/ FOLIC ACID TABLET (FP) PO SCH (10:20)
[2019-09-13] MEDS: FLUoxetine HCL 20 MG CAPSULE PO SCH (10:21)
[2019-09-13] MEDS: MELATONIN 5 MG TABLETS PO PRN (21:43)
[2019-09-13] MEDS: THIAMINE HCL 100 MG TABLET (FP) PO SCH (21:43)
[2019-09-14] MEDS: FLUoxetine HCL 20 MG CAPSULE PO SCH (10:46)
[2019-09-14] MEDS: PRENATAL VITAMINS W/ FOLIC ACID TABLET (FP) PO SCH (10:46)
[2019-09-14] MEDS: HYDROCORTISONE 1% TOPICAL OINT 30 GM TUBE TP SCH ×4 (10:47→21:47)
[2019-09-14] MEDS: THIAMINE HCL 100 MG TABLET (FP) PO SCH (21:10)
[2019-09-14] MEDS: MELATONIN 5 MG TABLETS PO PRN (21:10)
[2019-09-15] MEDS: FLUoxetine HCL 20 MG CAPSULE PO SCH (10:48)
[2019-09-15] MEDS: PRENATAL VITAMINS W/ FOLIC ACID TABLET (FP) PO SCH (10:49)
[2019-09-15] MEDS: HYDROCORTISONE 1% TOPICAL OINT 30 GM TUBE TP SCH ×4 (10:49→21:46)
[2019-09-15] MEDS: THIAMINE HCL 100 MG TABLET (FP) PO SCH (21:46)
[2019-09-15] MEDS: MELATONIN 5 MG TABLETS PO PRN (21:46)
[2019-09-16] MEDS: HYDROCORTISONE 1% TOPICAL OINT 30 GM TUBE TP SCH ×4 (10:25→21:38)
[2019-09-16] MEDS: FLUoxetine HCL 20 MG CAPSULE PO SCH (10:25)
[2019-09-16] MEDS: PRENATAL VITAMINS W/ FOLIC ACID TABLET (FP) PO SCH (10:25)
[2019-09-16] MEDS: THIAMINE HCL 100 MG TABLET (FP) PO SCH (21:38)
[2019-09-16] MEDS: MELATONIN 5 MG TABLETS PO PRN (21:38)
[2019-09-17] MEDS: HYDROCORTISONE 1% TOPICAL OINT 30 GM TUBE TP SCH ×4 (10:46→21:44)
[2019-09-17] MEDS: PRENATAL VITAMINS W/ FOLIC ACID TABLET (FP) PO SCH (10:46)
[2019-09-17] MEDS: FLUoxetine HCL 20 MG CAPSULE PO SCH (10:47)
[2019-09-17] MEDS: THIAMINE HCL 100 MG TABLET (FP) PO SCH (21:44)
[2019-09-17] MEDS: MELATONIN 5 MG TABLETS PO PRN (21:44)
[2019-09-18] MEDS: PRENATAL VITAMINS W/ FOLIC ACID TABLET (FP) PO SCH (10:18)
[2019-09-18] MEDS: HYDROCORTISONE 1% TOPICAL OINT 30 GM TUBE TP SCH ×4 (10:18→21:46)
[2019-09-18] MEDS: FLUoxetine HCL 20 MG CAPSULE PO SCH (10:18)
[2019-09-18] MEDS: THIAMINE HCL 100 MG TABLET (FP) PO SCH (21:10)
[2019-09-18] MEDS: MELATONIN 5 MG TABLETS PO PRN (21:10)
[2019-09-19] MEDS: HYDROCORTISONE 1% TOPICAL OINT 30 GM TUBE TP SCH ×4 (10:02→21:11)
[2019-09-19] MEDS: PRENATAL VITAMINS W/ FOLIC ACID TABLET (FP) PO SCH (10:02)
[2019-09-19] MEDS: FLUoxetine HCL 20 MG CAPSULE PO SCH (10:02)
[2019-09-19] MEDS: MELATONIN 5 MG TABLETS PO PRN (21:11)
[2019-09-19] MEDS: THIAMINE HCL 100 MG TABLET (FP) PO SCH (21:11)
[2019-09-20] MEDS: PRENATAL VITAMINS W/ FOLIC ACID TABLET (FP) PO SCH (09:44)
[2019-09-20] MEDS: HYDROCORTISONE 1% TOPICAL OINT 30 GM TUBE TP SCH ×4 (09:44→21:22)
[2019-09-20] MEDS: FLUoxetine HCL 20 MG CAPSULE PO SCH (09:44)
[2019-09-20] MEDS: MELATONIN 5 MG TABLETS PO PRN (21:22)
[2019-09-20] MEDS: THIAMINE HCL 100 MG TABLET (FP) PO SCH (21:22)
[2019-09-21] MEDS: PRENATAL VITAMINS W/ FOLIC ACID TABLET (FP) PO SCH (09:10)
[2019-09-21] MEDS: FLUoxetine HCL 20 MG CAPSULE PO SCH (09:10)
[2019-09-21] MEDS: HYDROCORTISONE 1% TOPICAL OINT 30 GM TUBE TP SCH ×4 (09:10→21:50)
--- NOTE | 2019-09-21 12:50 | PN ---
[facility] Progress Note Note: pt c/o insomnia and requests increased Melatonin. Vital Signs - 24 hr 09/21/19 09/21/19 09/21/19 00:30 03:30 07:53 Temperature 97.8 F Pulse Rate 77 Respiratory 18 18 18 Rate Blood Pressure 125/75 Alert o x 3 nad oob ambulating with steady gait. Maintain safety Melatonin 10 mg po HS
[2019-09-21] MEDS: MELATONIN 5 MG TABLETS PO PRN (21:50)
[2019-09-21] MEDS: THIAMINE HCL 100 MG TABLET (FP) PO SCH (21:50)
[2019-09-22] MEDS: PRENATAL VITAMINS W/ FOLIC ACID TABLET (FP) PO SCH (10:50)
[2019-09-22] MEDS: HYDROCORTISONE 1% TOPICAL OINT 30 GM TUBE TP SCH ×4 (10:50→21:13)
[2019-09-22] MEDS: FLUoxetine HCL 20 MG CAPSULE PO SCH (10:51)
[2019-09-22] MEDS: THIAMINE HCL 100 MG TABLET (FP) PO SCH (21:12)
[2019-09-22] MEDS: MELATONIN 5 MG TABLETS PO PRN (21:12)
[2019-09-23] MEDS: PRENATAL VITAMINS W/ FOLIC ACID TABLET (FP) PO SCH (10:18)
[2019-09-23] MEDS: FLUoxetine HCL 20 MG CAPSULE PO SCH (10:18)
[2019-09-23] MEDS: HYDROCORTISONE 1% TOPICAL OINT 30 GM TUBE TP SCH ×4 (10:18→21:30)
[2019-09-23] MEDS: MELATONIN 5 MG TABLETS PO PRN (21:30)
[2019-09-23] MEDS: THIAMINE HCL 100 MG TABLET (FP) PO SCH (21:30)
[2019-09-24] MEDS: FLUoxetine HCL 20 MG CAPSULE PO SCH (10:27)
[2019-09-24] MEDS: PRENATAL VITAMINS W/ FOLIC ACID TABLET (FP) PO SCH (10:27)
[2019-09-24] MEDS: HYDROCORTISONE 1% TOPICAL OINT 30 GM TUBE TP SCH ×4 (10:27→21:12)
[2019-09-24] MEDS: THIAMINE HCL 100 MG TABLET (FP) PO SCH (21:12)
[2019-09-24] MEDS: MELATONIN 5 MG TABLETS PO PRN (21:12)
[2019-09-25] MEDS: HYDROCORTISONE 1% TOPICAL OINT 30 GM TUBE TP SCH ×4 (10:56→21:16)
[2019-09-25] MEDS: FLUoxetine HCL 20 MG CAPSULE PO SCH (10:56)
[2019-09-25] MEDS: PRENATAL VITAMINS W/ FOLIC ACID TABLET (FP) PO SCH (10:56)
[2019-09-25] MEDS: MELATONIN 5 MG TABLETS PO PRN (21:15)
[2019-09-25] MEDS: THIAMINE HCL 100 MG TABLET (FP) PO SCH (21:15)
--- NOTE | 2019-09-26 10:27 | PN ---
[facility] Progress Note Note: Patient is scheduled for discharge tomorrow. Script for 30 days supply of Prozac 10 mg/day will be electronically transmitted to [facility] at [address] [place], [place] [id number]
[2019-09-26] MEDS: HYDROCORTISONE 1% TOPICAL OINT 30 GM TUBE TP SCH ×4 (11:04→21:56)
[2019-09-26] MEDS: PRENATAL VITAMINS W/ FOLIC ACID TABLET (FP) PO SCH (11:04)
[2019-09-26] MEDS: FLUoxetine HCL 20 MG CAPSULE PO SCH (11:04)
--- NOTE | 2019-09-26 13:35 | DS ---
[facility] Rehab Discharge Summary - [facility] Rehab Discharge Summary Admission Date: 08/30/19 Discharge Date: 09/27/19 - History Present History: Alcohol dependence, Cocaine dependence Additional Comments: Pt is a 49 y/o male with a hx of YARELIS admitted to rehab and scheduled for discharge in the morning of 09/27/19. Pt met with his counselor for discharge planning and has been referred to [facility] for CD aftercare. Pt has reported he has no PCP and hes been referred to follow up at [facility]. Pertinent Past History: Eczema Depression Sleep d/o - Discharge Physical Exam Vital Signs: Vital Signs Temperature 98.0 F 09/26/19 07:15 Pulse Rate 74 09/26/19 07:15 Respiratory Rate 18 09/26/19 07:15 Blood Pressure 128/78 09/26/19 07:15 O2 Sat by Pulse Oximetry (%) Alert o x 3,denies s/h/i nad oob ambulating with steady gait cardiac:s1 s2,rrr lungs:cta,omar. abdomen:soft,+bs,nt,nd extremities/skin;no edema;skin warm/chronic rash on left LE-dry,dark pigmented patches of skin. Pertinent Admission Physical Exam Findings: Unchanged and stable - Treatment Discharge Condition: Discharge condition good Hospital Course: Rehabilitated safely Responded well CD aftercare referral accepted participated in groups and individual sessions. - Medication Discharge Medications: Ambulatory Orders Fluoxetine HCl [Prozac -] 20 mg PO DAILY #30 capsule 09/26/19 - Medication-Assisted Treatment (MAT) Medication-Assisted Treatment (MAT): No - Discharge Instructions Diet, activity, other medical instructions: Diet:Regular Activity: oob ad callie Other medical instructions:follow up with CD aftercare recommendation as scheduled at [facility]. follow up with primary care at [facility] within 1-2 weeks after discharge and as needed. - Diagnosis (1) Alcohol use disorder Current Visit: Yes Status: Chronic (2) Cocaine dependence Current Visit: Yes Status: Chronic Qualifiers: Substance use status: uncomplicated Qualified Code(s): F14.20 - Cocaine dependence, uncomplicated (3) Eczematous skin lesions Current Visit: Yes Status: Chronic - Follow-up Referral Minutes to complete discharge: 25 - AMA Did Patient Leave Against Medical Advice: No
[2019-09-26] MEDS: MELATONIN 5 MG TABLETS PO PRN (21:56)
[2019-09-26] MEDS: THIAMINE HCL 100 MG TABLET (FP) PO SCH (21:56)
[2019-09-27 07:16] VITALS: BP 134/86; PULSE 97; TEMP 97.7
[2019-09-27] MEDS: HYDROCORTISONE 1% TOPICAL OINT 30 GM TUBE TP SCH (11:39)
[2019-09-27] MEDS: FLUoxetine HCL 20 MG CAPSULE PO SCH (11:40)
[2019-09-27] MEDS: PRENATAL VITAMINS W/ FOLIC ACID TABLET (FP) PO SCH (11:40)
== END 2019-09-27 09:13 | disposition home or self-care (01) | DRG 772 ==
LOC: YASAS 13:26 → Y5N 13:29
PROVIDERS: ADMIT Allergy & Immunology; ATTEND Allergy & Immunology
PROC: HZ42ZZZ Group Counseling for Substance Abuse Treatment, Cognitive-Behavioral (ICD-10-PCS; principal; 2019-08-30)
DX: F10.20 Alcohol dependence, uncomplicated (principal); F14.20 Cocaine dependence, uncomplicated; F19.24 Other psychoactive substance dependence with psychoactive substance-induced mood disorder; F32.9 Major depressive disorder, single episode, unspecified; L98.8 Other specified disorders of the skin and subcutaneous tissue; L30.9 Dermatitis, unspecified
CPT/HCPCS: G0008; Q2036

== ENCOUNTER 2021-06-08 11:34 | Inpatient (IN) | payer OTHER ==
[2021-06-08] MEDS ORDERED: MAGNESIUM CITRATE 300 ML BOTTLE PO PRN (17:38)
[2021-06-08] MEDS ORDERED: BISMUTH SUBSALICYLATE 524 MG/30 ML PO PRN (17:38)
[2021-06-08] MEDS ORDERED: ACETAMINOPHEN 325 MG TABLET (FP) PO PRN (17:38)
[2021-06-08] MEDS ORDERED: MAG HYDROX/AL HYDROX/SIMETH 30 ML UNIT-DOSE CUP PO PRN (17:38)
[2021-06-08] MEDS ORDERED: MAGNESIUM HYDROX 2400MG/30ML ORAL SUSPENSION 30 ML CUP PO PRN (17:38)
[2021-06-08] MEDS ORDERED: METHOCARBAMOL 500 MG TABLET PO PRN (17:38)
[2021-06-08] MEDS ORDERED: MENTHOL/PHENOL 1 EACH UD MM PRN (17:38)
[2021-06-08] MEDS ORDERED: ONDANSETRON *ODT* 4 MG TABLET SL PRN (17:38)
[2021-06-08 18:08] VITALS: BMI 25.8
[2021-06-08] MEDS: hydrOXYzine PAMOATE 25 MG CAPSULE (FP) PO SCH ×2 (19:10→21:45)
[2021-06-08] MEDS ORDERED: TUBERCULIN PPD 5 TU/0.1ML VIAL ID ONE (19:41)
[2021-06-08] MEDS: ACETAMINOPHEN 325 MG TABLET (FP) PO PRN (19:47)
[2021-06-08] MEDS: THIAMINE HCL 100 MG TABLET (FP) PO SCH (21:45)
[2021-06-08] MEDS: MELATONIN 5 MG TABLETS PO SCH (21:45)
[2021-06-09] MEDS: hydrOXYzine PAMOATE 25 MG CAPSULE (FP) PO SCH ×5 (06:32→21:14)
[2021-06-09] MEDS: PRENATAL VITAMINS W/ FOLIC ACID TABLET (FP) PO SCH (10:09)
[2021-06-09] MEDS: FLUoxetine HCL 10 MG CAPSULE PO SCH (10:09)
[2021-06-09 10:17] LABS: HEMATOCRIT 36.9 % (35.4-49); HEMOGLOBIN 12.4 GM/dL (11.7-16.9); MCH 33.2 pg (25.7-33.7); MCHC 33.5 g/dl (32.0-35.9); MEAN PLT VOLUME 9.4 fl (7.5-11.1); PLATELET COUNT 206 10^3/uL (134-434); RBC 3.73 M/mm3 (4.00-5.60); RDW 13.9 % (11.9-15.9); WHITE BLOOD COUNT 5.5 K/mm3 (4.0-10.0)
[2021-06-09 10:32] LABS: ALBUMIN 3.2 g/dl (3.4-5.0); BLOOD UREA NITROGEN 9.8 mg/dL (7-18)
[2021-06-09 10:35] LABS: CREATININE 0.8 mg/dL (0.55-1.3)
[2021-06-09 10:36] LABS: BILIRUBIN,TOTAL 0.6 mg/dL (0.2-1); TOT PROT 6.4 g/dl (6.4-8.2)
[2021-06-09 12:50] LABS: HIV INTERPRETATION NEGATIVE (NEGATIVE)
[2021-06-09] MEDS: MELATONIN 5 MG TABLETS PO SCH (21:13)
[2021-06-09] MEDS: THIAMINE HCL 100 MG TABLET (FP) PO SCH (21:14)
[2021-06-10] MEDS: hydrOXYzine PAMOATE 25 MG CAPSULE (FP) PO SCH ×2 (06:35→09:50)
[2021-06-10] MEDS: FLUoxetine HCL 10 MG CAPSULE PO SCH (09:50)
[2021-06-10] MEDS: PRENATAL VITAMINS W/ FOLIC ACID TABLET (FP) PO SCH (09:50)
[2021-06-10] MEDS ORDERED: hydrOXYzine PAMOATE 25 MG CAPSULE (FP) PO PRN (12:06)
[2021-06-10] MEDS: THIAMINE HCL 100 MG TABLET (FP) PO SCH (21:26)
[2021-06-10] MEDS: MELATONIN 5 MG TABLETS PO SCH (21:26)
[2021-06-11] MEDS ORDERED: PT OWN MED DRAWER 7, Y5N ONE (08:13)
[2021-06-11] MEDS: PRENATAL VITAMINS W/ FOLIC ACID TABLET (FP) PO SCH (09:48)
[2021-06-11] MEDS: FLUoxetine HCL 10 MG CAPSULE PO SCH (09:48)
[2021-06-11] MEDS: THIAMINE HCL 100 MG TABLET (FP) PO SCH (21:04)
[2021-06-11] MEDS: MELATONIN 5 MG TABLETS PO SCH (21:04)
[2021-06-12] MEDS ORDERED: PT OWN MED DRAWER 7, Y5N ONE (09:00)
[2021-06-12] MEDS: FLUoxetine HCL 10 MG CAPSULE PO SCH (09:59)
[2021-06-12] MEDS: PRENATAL VITAMINS W/ FOLIC ACID TABLET (FP) PO SCH (09:59)
[2021-06-12] MEDS: NICOTINE 10 MG CARTRIDGE (INHALER) IH PRN (17:34)
[2021-06-12] MEDS: MELATONIN 5 MG TABLETS PO SCH (21:21)
[2021-06-12] MEDS: THIAMINE HCL 100 MG TABLET (FP) PO SCH (21:21)
[2021-06-13] MEDS: NICOTINE 10 MG CARTRIDGE (INHALER) IH PRN (07:12)
[2021-06-13] MEDS ORDERED: PT OWN MED DRAWER 7, Y5N ONE (09:06)
[2021-06-13] MEDS: FLUoxetine HCL 10 MG CAPSULE PO SCH (09:45)
[2021-06-13] MEDS: PRENATAL VITAMINS W/ FOLIC ACID TABLET (FP) PO SCH (09:45)
[2021-06-13] MEDS: MELATONIN 5 MG TABLETS PO SCH (21:15)
[2021-06-13] MEDS: THIAMINE HCL 100 MG TABLET (FP) PO SCH (21:15)
[2021-06-14] MEDS: FLUoxetine HCL 10 MG CAPSULE PO SCH (09:56)
[2021-06-14] MEDS: PRENATAL VITAMINS W/ FOLIC ACID TABLET (FP) PO SCH (09:56)
[2021-06-14] MEDS: THIAMINE HCL 100 MG TABLET (FP) PO SCH (22:14)
[2021-06-14] MEDS: MELATONIN 5 MG TABLETS PO SCH (22:14)
[2021-06-15] MEDS: PRENATAL VITAMINS W/ FOLIC ACID TABLET (FP) PO SCH (09:37)
[2021-06-15] MEDS: FLUoxetine HCL 10 MG CAPSULE PO SCH (10:08)
[2021-06-15] MEDS ORDERED: PT OWN MED DRAWER 7, Y5N ONE (10:21)
[2021-06-15] MEDS: MELATONIN 5 MG TABLETS PO SCH (21:07)
[2021-06-15] MEDS: THIAMINE HCL 100 MG TABLET (FP) PO SCH (21:08)
[2021-06-16] MEDS: PRENATAL VITAMINS W/ FOLIC ACID TABLET (FP) PO SCH (09:26)
[2021-06-16] MEDS: FLUoxetine HCL 20 MG CAPSULE PO SCH (10:04)
[2021-06-16] MEDS: MELATONIN 5 MG TABLETS PO SCH (21:46)
[2021-06-16] MEDS: THIAMINE HCL 100 MG TABLET (FP) PO SCH (21:46)
[2021-06-16] MEDS ORDERED: PT OWN MED DRAWER 7, Y5N ONE (22:22)
[2021-06-17] MEDS: PRENATAL VITAMINS W/ FOLIC ACID TABLET (FP) PO SCH (09:46)
[2021-06-17] MEDS: FLUoxetine HCL 20 MG CAPSULE PO SCH (09:46)
[2021-06-17] MEDS: MELATONIN 5 MG TABLETS PO SCH (21:29)
[2021-06-17] MEDS: THIAMINE HCL 100 MG TABLET (FP) PO SCH (21:29)
[2021-06-18] MEDS ORDERED: PT OWN MED DRAWER 7, Y5N ONE (09:08)
[2021-06-18] MEDS: PRENATAL VITAMINS W/ FOLIC ACID TABLET (FP) PO SCH (09:45)
[2021-06-18] MEDS: FLUoxetine HCL 20 MG CAPSULE PO SCH (09:45)
[2021-06-18] MEDS: MELATONIN 5 MG TABLETS PO SCH (21:27)
[2021-06-18] MEDS: THIAMINE HCL 100 MG TABLET (FP) PO SCH (21:27)
[2021-06-19] MEDS ORDERED: PT OWN MED DRAWER 7, Y5N ONE (08:45)
[2021-06-19] MEDS: FLUoxetine HCL 20 MG CAPSULE PO SCH (09:40)
[2021-06-19] MEDS: PRENATAL VITAMINS W/ FOLIC ACID TABLET (FP) PO SCH (09:40)
[2021-06-19] MEDS: IBUPROFEN 400 MG TABLET (FP) PO PRN (17:36)
[2021-06-19] MEDS: THIAMINE HCL 100 MG TABLET (FP) PO SCH (21:37)
[2021-06-19] MEDS: MELATONIN 5 MG TABLETS PO SCH (21:37)
[2021-06-20] MEDS: PRENATAL VITAMINS W/ FOLIC ACID TABLET (FP) PO SCH (09:15)
[2021-06-20] MEDS: FLUoxetine HCL 20 MG CAPSULE PO SCH (09:15)
[2021-06-20] MEDS: THIAMINE HCL 100 MG TABLET (FP) PO SCH (21:27)
[2021-06-20] MEDS: MELATONIN 5 MG TABLETS PO SCH (21:27)
[2021-06-21] MEDS ORDERED: PT OWN MED DRAWER 7, Y5N ONE (08:40)
[2021-06-21] MEDS: FLUoxetine HCL 20 MG CAPSULE PO SCH (10:01)
[2021-06-21] MEDS: PRENATAL VITAMINS W/ FOLIC ACID TABLET (FP) PO SCH (10:01)
[2021-06-21] MEDS: THIAMINE HCL 100 MG TABLET (FP) PO SCH (21:39)
[2021-06-21] MEDS: MELATONIN 5 MG TABLETS PO SCH (21:39)
[2021-06-22] MEDS ORDERED: PT OWN MED DRAWER 7, Y5N ONE (08:56)
[2021-06-22] MEDS: PRENATAL VITAMINS W/ FOLIC ACID TABLET (FP) PO SCH (09:32)
[2021-06-22] MEDS: FLUoxetine HCL 20 MG CAPSULE PO SCH (09:32)
[2021-06-22] MEDS: ACETAMINOPHEN 325 MG TABLET (FP) PO PRN (15:28)
[2021-06-22] MEDS: THIAMINE HCL 100 MG TABLET (FP) PO SCH (21:44)
[2021-06-22] MEDS: MELATONIN 5 MG TABLETS PO SCH (21:44)
[2021-06-23] MEDS ORDERED: PT OWN MED DRAWER 7, Y5N ONE (09:28)
[2021-06-23] MEDS: FLUoxetine HCL 20 MG CAPSULE PO SCH (09:30)
[2021-06-23] MEDS: PRENATAL VITAMINS W/ FOLIC ACID TABLET (FP) PO SCH (09:31)
[2021-06-23] MEDS: IBUPROFEN 400 MG TABLET (FP) PO PRN (20:06)
[2021-06-23] MEDS: MELATONIN 5 MG TABLETS PO SCH (21:49)
[2021-06-23] MEDS: THIAMINE HCL 100 MG TABLET (FP) PO SCH (21:49)
[2021-06-24] MEDS ORDERED: MASKS NR ONE (09:01)
[2021-06-24] MEDS: PRENATAL VITAMINS W/ FOLIC ACID TABLET (FP) PO SCH (09:02)
[2021-06-24] MEDS: FLUoxetine HCL 20 MG CAPSULE PO SCH (09:02)
[2021-06-24] MEDS: NICOTINE 10 MG CARTRIDGE (INHALER) IH PRN (16:32)
[2021-06-24] MEDS: IBUPROFEN 400 MG TABLET (FP) PO PRN (18:35)
[2021-06-24] MEDS: MELATONIN 5 MG TABLETS PO SCH (21:28)
[2021-06-24] MEDS: THIAMINE HCL 100 MG TABLET (FP) PO SCH (21:28)
[2021-06-25] MEDS ORDERED: PT OWN MED DRAWER 7, Y5N ONE (08:49)
[2021-06-25] MEDS: FLUoxetine HCL 20 MG CAPSULE PO SCH (09:02)
[2021-06-25] MEDS: PRENATAL VITAMINS W/ FOLIC ACID TABLET (FP) PO SCH (09:02)
[2021-06-25] MEDS: THIAMINE HCL 100 MG TABLET (FP) PO SCH (21:27)
[2021-06-25] MEDS: MELATONIN 5 MG TABLETS PO SCH (21:27)
[2021-06-25] MEDS: ACETAMINOPHEN 325 MG TABLET (FP) PO PRN (21:50)
[2021-06-26] MEDS ORDERED: PT OWN MED DRAWER 7, Y5N ONE (08:55)
[2021-06-26] MEDS: FLUoxetine HCL 20 MG CAPSULE PO SCH (09:07)
[2021-06-26] MEDS: PRENATAL VITAMINS W/ FOLIC ACID TABLET (FP) PO SCH (09:07)
[2021-06-26] MEDS: NICOTINE 10 MG CARTRIDGE (INHALER) IH PRN (15:43)
[2021-06-26] MEDS: MELATONIN 5 MG TABLETS PO SCH (21:53)
[2021-06-26] MEDS: THIAMINE HCL 100 MG TABLET (FP) PO SCH (21:53)
[2021-06-27] MEDS: FLUoxetine HCL 20 MG CAPSULE PO SCH (09:51)
[2021-06-27] MEDS: PRENATAL VITAMINS W/ FOLIC ACID TABLET (FP) PO SCH (09:51)
[2021-06-27] MEDS: THIAMINE HCL 100 MG TABLET (FP) PO SCH (21:48)
[2021-06-27] MEDS: MELATONIN 5 MG TABLETS PO SCH (21:48)
[2021-06-28] MEDS: FLUoxetine HCL 20 MG CAPSULE PO SCH (09:58)
[2021-06-28] MEDS: PRENATAL VITAMINS W/ FOLIC ACID TABLET (FP) PO SCH (09:58)
[2021-06-28] MEDS: NICOTINE 10 MG CARTRIDGE (INHALER) IH PRN (17:54)
[2021-06-28] MEDS: THIAMINE HCL 100 MG TABLET (FP) PO SCH (21:23)
[2021-06-28] MEDS: MELATONIN 5 MG TABLETS PO SCH (21:23)
[2021-06-29] MEDS: FLUoxetine HCL 20 MG CAPSULE PO SCH (09:18)
[2021-06-29] MEDS: PRENATAL VITAMINS W/ FOLIC ACID TABLET (FP) PO SCH (09:18)
[2021-06-29] MEDS: NICOTINE 10 MG CARTRIDGE (INHALER) IH PRN (15:35)
[2021-06-29] MEDS: MELATONIN 5 MG TABLETS PO SCH (21:36)
[2021-06-29] MEDS: THIAMINE HCL 100 MG TABLET (FP) PO SCH (21:36)
[2021-06-30] MEDS: PRENATAL VITAMINS W/ FOLIC ACID TABLET (FP) PO SCH (09:04)
[2021-06-30] MEDS: NICOTINE 10 MG CARTRIDGE (INHALER) IH PRN ×2 (09:04→16:00)
[2021-06-30] MEDS: FLUoxetine HCL 20 MG CAPSULE PO SCH (09:04)
[2021-06-30] MEDS: THIAMINE HCL 100 MG TABLET (FP) PO SCH (21:27)
[2021-06-30] MEDS: MELATONIN 5 MG TABLETS PO SCH (21:27)
[2021-07-01] MEDS: FLUoxetine HCL 20 MG CAPSULE PO SCH (09:07)
[2021-07-01] MEDS: PRENATAL VITAMINS W/ FOLIC ACID TABLET (FP) PO SCH (09:07)
[2021-07-01] MEDS ORDERED: PT OWN MED DRAWER 7, Y5N ONE (10:03)
[2021-07-01] MEDS: NICOTINE 10 MG CARTRIDGE (INHALER) IH PRN (20:45)
[2021-07-01] MEDS: THIAMINE HCL 100 MG TABLET (FP) PO SCH (21:43)
[2021-07-01] MEDS: MELATONIN 5 MG TABLETS PO SCH (21:43)
[2021-07-01] MEDS: ACETAMINOPHEN 325 MG TABLET (FP) PO PRN (22:50)
[2021-07-02] MEDS ORDERED: PT OWN MED DRAWER 7, Y5N ONE (08:46)
[2021-07-02] MEDS: PRENATAL VITAMINS W/ FOLIC ACID TABLET (FP) PO SCH (09:38)
[2021-07-02] MEDS: FLUoxetine HCL 20 MG CAPSULE PO SCH (09:38)
[2021-07-02] MEDS: THIAMINE HCL 100 MG TABLET (FP) PO SCH (21:30)
[2021-07-02] MEDS: MELATONIN 5 MG TABLETS PO SCH (21:30)
[2021-07-03] MEDS: FLUoxetine HCL 20 MG CAPSULE PO SCH (09:51)
[2021-07-03] MEDS: PRENATAL VITAMINS W/ FOLIC ACID TABLET (FP) PO SCH (09:52)
[2021-07-03] MEDS: NICOTINE 10 MG CARTRIDGE (INHALER) IH PRN (18:42)
[2021-07-03] MEDS: MELATONIN 5 MG TABLETS PO SCH (21:47)
[2021-07-03] MEDS: THIAMINE HCL 100 MG TABLET (FP) PO SCH (21:48)
[2021-07-04] MEDS: PRENATAL VITAMINS W/ FOLIC ACID TABLET (FP) PO SCH (09:10)
[2021-07-04] MEDS: FLUoxetine HCL 20 MG CAPSULE PO SCH (09:11)
[2021-07-04] MEDS ORDERED: PT OWN MED DRAWER 7, Y5N ONE (14:40)
[2021-07-04] MEDS: THIAMINE HCL 100 MG TABLET (FP) PO SCH (21:38)
[2021-07-04] MEDS: NICOTINE 10 MG CARTRIDGE (INHALER) IH PRN (21:38)
[2021-07-04] MEDS: MELATONIN 5 MG TABLETS PO SCH (21:38)
[2021-07-05 06:43] VITALS: TEMP 97.1
[2021-07-05] MEDS: PRENATAL VITAMINS W/ FOLIC ACID TABLET (FP) PO SCH (09:17)
[2021-07-05] MEDS: FLUoxetine HCL 20 MG CAPSULE PO SCH (09:17)
[2021-07-05] MEDS ORDERED: PT OWN MED DRAWER 7, Y5N ONE (09:38)
[2021-07-05] MEDS: NICOTINE 10 MG CARTRIDGE (INHALER) IH PRN ×2 (11:33→21:33)
[2021-07-05] MEDS: MELATONIN 5 MG TABLETS PO SCH (21:34)
[2021-07-05] MEDS: THIAMINE HCL 100 MG TABLET (FP) PO SCH (21:34)
[2021-07-06 06:48] VITALS: BP 143/91; PULSE 72
[2021-07-06] MEDS: PRENATAL VITAMINS W/ FOLIC ACID TABLET (FP) PO SCH (09:05)
[2021-07-06] MEDS: FLUoxetine HCL 20 MG CAPSULE PO SCH (09:05)
[2021-07-06] MEDS: NICOTINE 10 MG CARTRIDGE (INHALER) IH PRN (09:06)
== END 2021-07-06 09:11 | disposition home or self-care (01) | DRG 772 ==
LOC: YASAS 11:34 → Y3E 17:45
PROVIDERS: ADMIT Allergy & Immunology; ATTEND Allergy & Immunology
PROC: HZ42ZZZ Group Counseling for Substance Abuse Treatment, Cognitive-Behavioral (ICD-10-PCS; principal; 2021-06-08)
DX: F10.20 Alcohol dependence, uncomplicated (principal); F14.20 Cocaine dependence, uncomplicated; F32.A Depression, unspecified; F19.24 Other psychoactive substance dependence with psychoactive substance-induced mood disorder; L20.9 Atopic dermatitis, unspecified; Z56.0 Unemployment, unspecified; Z59.00 Homelessness unspecified
CPT/HCPCS: 36415; 80053; 85027; 86780; 87389; C9803; U0003; U0005